=== PATIENT | male | born 1935 | race Caucasian/White ===

== ENCOUNTER 2022-05-27 19:05 | Emergency (ER) | payer MEDICARE, OTHER ==
[2022-05-27 21:35] VITALS: BP 119/61; PULSE 82
== END 2022-05-27 21:30 | disposition home or self-care (01) ==
LOC: KA.ED 19:05
DX: B34.9 Viral infection, unspecified (principal); K40.90 Unilateral inguinal hernia, without obstruction or gangrene, not specified as recurrent; N42.9 Disorder of prostate, unspecified; M62.08 Separation of muscle (nontraumatic), other site; I25.119 Atherosclerotic heart disease of native coronary artery with unspecified angina pectoris; I10 Essential (primary) hypertension; I25.2 Old myocardial infarction; Z87.891 Personal history of nicotine dependence; Z95.1 Presence of aortocoronary bypass graft
CPT/HCPCS: 36415; 71046; 80053; 85025; 99283

== ENCOUNTER 2022-12-08 16:55 | Emergency (ER) | payer MEDICARE, OTHER ==
[2022-12-08] MEDS ORDERED: Benzocaine 20% Topical Spray UD ONE (17:44)
[2022-12-08 17:46] LABS: BASOPHILS ABSOLUTE AUTO 0.03 10^3/uL (0.00-0.10); BASOPHILS PERCENT AUTO 0.4 % (0.0-1.0); EOSINOPHILS ABSOLUTE AUTO 0.08 10^3/uL (0.10-0.30); HEMATOCRIT 41.9 % (40.0-52.0); IMMATURE GRAN ABSOLUTE AUTO 0.01 10^3/uL (0.00-0.50); IMMATURE GRAN PERCENT AUTO 0.1 % (0.0-5.0); LYMPHOCYTES ABSOLUTE AUTO 1.41 10^3/uL (1.00-4.00); MEAN CORPUSCULAR HEMOGLOBIN 27.5 pg (27.0-31.0); MEAN CORPUSCULAR HGB CONC 33.4 g/dL (32.0-36.0); MEAN CORPUSCULAR VOLUME 82.2 fL (82.0-92.0); MONOCYTES ABSOLUTE AUTO 1.08 10^3/uL (0.10-0.80); MONOCYTES PERCENT AUTO 13.8 % (2.0-8.0); NEUTROPHILS ABSOLUTE AUTO 5.22 10^3/uL (2.50-7.00); NEUTROPHILS PERCENT AUTO 66.7 % (50.0-70.0); PLATELET COUNT,PLT 307 10^3/uL (150-400); WHITE BLOOD CELL COUNT,WBC 7.83 10^3/uL (5.00-10.00)
[2022-12-08 18:02] LABS: ALBUMIN 3.9 g/dL (3.40-5.00); CALCIUM 9.7 mg/dL (8.7-10.3); CARBON DIOXIDE,CO2 25.6 mmol/L (21.0-32.0); CREATININE 0.97 mg/dL (0.51-1.17); EST CRCL DRUG DOSING (CG) 56.07 mL/min; POTASSIUM,K 4.6 mmol/L (3.5-5.1); PROTEIN TOTAL,TP 8.3 g/dL (6.4-8.2)
[2022-12-08] MEDS ORDERED: Ketorolac 30 MG/ML SDV IVPUSH ONE (18:03)
[2022-12-08] MEDS ORDERED: Iopamidol 755 Mg/ML 100 ML Bottle IV ONE (18:24)
[2022-12-08] MEDS ORDERED: Sodium Chloride 0.9% 50 ML IV SCH (18:30)
[2022-12-08] MEDS ORDERED: Acetaminophen/HYDROcodone 325-5 MG Tab PO ONE (20:09)
== END 2022-12-08 20:21 | disposition home or self-care (01) ==
LOC: KA.ED 16:55
DX: R07.0 Pain in throat (principal); M79.9 Soft tissue disorder, unspecified; I25.10 Atherosclerotic heart disease of native coronary artery without angina pectoris; I10 Essential (primary) hypertension; I25.2 Old myocardial infarction
CPT/HCPCS: 36415; 70491; 80053; 85025; 96374; 99284; 99284-25; A9270-GY; J1885; J3490; Q9967